=== PATIENT | female | born 1990 | race Caucasian/White ===

== ENCOUNTER 2018-04-23 14:19 | Emergency (ER) | payer OTHER ==
[~2018-04-23] VITALS: Ht 170.2 cm; Wt 59.7 kg
[2018-04-23] MEDS ORDERED: SILVER SULF. CRM 1% , 25GM TP ONE (15:54)
[2018-04-23] MEDS ORDERED: SILVER SULF. CRM 1% , 25GM ONE (16:00)
== END 2018-04-23 16:25 | disposition home or self-care (01) ==
LOC: ED 15:55
DX: T22.511A Corrosion of first degree of right forearm, initial encounter (principal); T32.0 Corrosions involving less than 10% of body surface; F31.9 Bipolar disorder, unspecified; Y93.G3 Activity, cooking and baking; Y92.89 Other specified places as the place of occurrence of the external cause; Y99.0 Civilian activity done for income or pay
CPT/HCPCS: 16020; 99284